=== PATIENT | male | born 1960 | race Caucasian/White ===

== ENCOUNTER 2020-11-12 07:26 | Emergency (ER) | payer MEDICAID ==
[~2020-11-12] VITALS: Ht 175.3 cm; Wt 109.3 kg
--- NOTE | 2020-11-12 07:37 | NUR ---
PATIENT WALKED BACK FROM TRIAGE WITH CHIEF C/O LEFT LEG PAIN. PER PATIENT PAIN STARTED 2 MONTHS AGO IN THE BACK OF HIS LEFT KNEE. PAIN HAS GOTTEN PROGRESSIVELY WORSE AND THIS MORNING PATIENT REPORTS WAKING UP WITH "SPIDER VEINS" ON THE INSIDE OF HIS LEFT THIGH. DENIES INJURY OR TRAUMA. NO OBVIOUS DEFORMITY NOTED TO LEFT KNEE, SLIGHT SWELLING. CONNECTED TO MONITOR, VSS, CALL LIGHT WITHIN REACH. Addendum: 11/12/20 at 0745 by CHRISTINA PATIENT ADMITS TO SMOKING METH THIS MORNING, REPORTS RECENTLY BINGE DRINKING "ABOUT 1 PINT OF WHISKEY PER DAY."
--- NOTE | 2020-11-12 08:04 | NUR ---
PATIENT TO IMAGING.
[2020-11-12 09:04] VITALS: BP 130/79
--- NOTE | 2020-11-12 09:15 | NUR ---
Patient given discharge instructions and they have confirmed that they understand the instructions. Patient ambulatory with steady gait. NAD, all questions answered appropriately, denies additional needs at this time. No personal belongings left in room after discharge.
== END 2020-11-12 09:16 | disposition home or self-care (01) ==
LOC: ED 09:00
DX: M25.562 Pain in left knee (principal); M79.652 Pain in left thigh; F17.210 Nicotine dependence, cigarettes, uncomplicated
CPT/HCPCS: 99284